=== PATIENT | male | born 1940 | race Caucasian/White ===

== ENCOUNTER 2018-01-24 11:57 | Emergency (ER) | payer OTHER ==
[~2018-01-24] VITALS: Ht 162.6 cm; Wt 68.0 kg
[~2018-01-24 11:57] MED LIST: ADULT LOW DOSE81 MG PO; ADVAIR HFA115 MCG/21 INH; APAP650 PO; CIPRO500 MG PO; COLACE100 MG PO; CRESTOR20 MG PO; GLUCOSAMINE CH1 EAC8 PO; NORCO 5-325 TA1 EACH PO; PHENAZOPYRIDIN200 M2 PO; PROSCAR 5MG TABL5 M1 PO; PROTONIX40 M2 PO; SINGULAIR 10 MG10 M1 PO; TERAZOSIN HCL10 MG PO
[2018-01-24] MEDS ORDERED: ASPIRIN325 PO (12:16)
[2018-01-24] MEDS ORDERED: ATORVASTATIN CA40 MG PO (12:18)
[2018-01-24] MEDS ORDERED: NORCO 5-325 TA1 EAC1 PO (14:56)
[2018-01-24 15:11] VITALS: BP 117/60
== END 2018-01-24 15:12 | disposition home or self-care (01) ==
LOC: M.ERS 11:57
DX: S01.112A Laceration without foreign body of left eyelid and periocular area, initial encounter (principal); E78.00 Pure hypercholesterolemia, unspecified; I10 Essential (primary) hypertension; J45.909 Unspecified asthma, uncomplicated; K21.9 Gastro-esophageal reflux disease without esophagitis; W01.198A Fall on same level from slipping, tripping and stumbling with subsequent striking against other object, initial encounter; Y93.89 Activity, other specified; Y92.89 Other specified places as the place of occurrence of the external cause; Y99.8 Other external cause status